=== PATIENT | female | born 1950 | race Caucasian/White ===

== ENCOUNTER → 2017-01-24 | Outpatient (CLI) | payer MEDICARE ==
[~2017-01-24] MED LIST: ALLEGRA ALLERG180 MG PO; ALLEGRA PO; AMBIEN10 MG PO; B COMPLEX1 CA1; B COMPLEX1 TAB; CELEXA10 MG PO; CRESTOR PO; CRESTOR5 MG PO; DICLOFENAC PO; FIBERCON625 MG PO; NEURONTIN PO; NEURONTIN300 MG PO; PREVACID 24HR15 MG; PROPRANOLOL PO; PROZAC PO; SENNA PO; TOPAMAX PO; VITAMIN B-1000 MCG/1 IJ; XANAX1 MG PO
--- NOTE | ~2017-01-24 | MR103 ---
[facility] A Service of [facility] RADIOLOGY TEXT RESULTS PATIENT: YONIS CASTELLANO LOCATION: [facility] : 46 UNIT #: [id number] AGE: [address]: Gopal Tang MD SEX: F ORDER DR: [id number] [address] [address] [id number] O MR#: [id number] Acc #: [id number] NAME: YONIS CASTELLANO : 1950 SEX: F STUDY DATE/TIME: 01/24/2017 15:12 UNIT: [facility] ROOM: STUDY DESCRIPTION: MR Knee Wo Contrast Lt Attending Physician: Gopal Tang M.D. Referring Physician: Gopal Tang M.D. Ordering Physician: Gopal Tang M.D. Primary Care Physician: Cristina Connolly M.D. MRI CENTER REPORT This report is preliminary unless electronic signature is present. EXAM MRI left knee 01/24/2017 COMPARISON Left knee radiographs 01/18/2017. HISTORY Order states left knee pain. History sheet states no known injury. No knee surgery. Increasing left knee pain for 10 years worse since right knee replacement 8 years ago. Increasing pain over the last few months since restoring furniture. Multiple repeats performed as patient would not hold still. History of breast cancer and left thigh melanoma. FINDINGS There is a mild effusion without a popliteal cyst. There is patellofemoral arthrosis with joint space narrowing, extensive high-grade chondromalacia patella, and at least low grade chondromalacia of the femoral trochlea. Quadriceps and patellar tendons are intact. There is mild anterior tibial translation and PCL buckling. These findings suggest ACL - related laxity. The ACL however does appear continuous and intact; however scar/fibrosis related to an old ACL injury cannot simulate a normal cruciate anterior cruciate ligament. Correlate for ACL - related stability. The lateral meniscus, lateral collateral ligament complex, and popliteus tendon are intact. There is no high-grade lateral compartment chondromalacia or subarticular marrow edema. There is advanced medial compartment arthrosis with joint space narrowing, marginal osteophyte formation, and fairly extensive weight bearing grade 4 chondromalacia. There is mild subarticular marrow edema of the tibia. [facility]. [facility] A Service of [facility] RADIOLOGY TEXT RESULTS PATIENT: YONIS CASTELLANO LOCATION: [facility] : 46 UNIT #: [id number] AGE: [address]: Gopal Tang MD SEX: F ORDER DR: The medial meniscus is extruded. Motion limits medial meniscal characterization but there is at least a free margin or radial tear in the posterior horn without complete root detachment. The free margin is attenuated and irregular throughout the posterior body and horn segment. There is no displaced meniscal flap or fragment. The MCL is intact. There is no marrow lesion or fracture. No sizeable loose bodies are noted. IMPRESSION 1. The predominant abnormality is moderately advanced medial compartment arthrosis with a complex, likely degenerative, tear in the posterior body/horn segment. There is no significant subarticular marrow edema medially. Minimal marrow edema is noted of the tibia. 2. Patellofemoral arthrosis without subarticular marrow edema detailed above. 3. Lateral compartment is unremarkable. 4. Findings suggestive of ACL - related joint laxity. The ACL appears continuous and intact although it could be simulated by fibrosis/scarring as sequela from a prior injury. Correlate for clinical ACL stability. 5. Effusion without fracture or loose body. Dictated by... Ara Samaniego M.D. THIS IS AN ELECTRONICALLY VERIFIED REPORT Ara Samaniego M.D. at 01/26/2017 11:49 AM TOPHER/shelby TD: 01/25/2017 13:17 JOB #: [id number] MRI CENTER REPORT Page 1 of 1
== END | disposition home or self-care (01) ==
LOC: SMRI 14:36
DX: M25.562 Pain in left knee (principal); M17.12 Unilateral primary osteoarthritis, left knee; M25.462 Effusion, left knee; R60.0 Localized edema
CPT/HCPCS: 73721